=== PATIENT | male | born 1960 | race Caucasian/White ===

== ENCOUNTER 2018-03-31 17:09 | Emergency (ER) | payer BC, OTHER ==
--- NOTE | 2018-03-31 18:02 | EDM.PDOC ---
ED HPI GENERAL MEDICAL PROBLEM - General Chief Complaint: General Stated Complaint: INJURY ON PELVIC AREA Time Seen by Provider: 03/31/18 17:32 Source of Information: Reports: Patient, RN Notes Reviewed - History of Present Illness INITIAL COMMENTS - FREE TEXT/NARRATIVE: 57-year-old male comes in having been kicked or stepped on by a cow anterior mid pelvis just above the base of the penis about 10 days ago. Dates the area did swell up and bruised up immediately. Per day or 2 the bruising and swelling moved lowered down into the scrotum. He is to have bruising of the scrotum. The bruising higher up above the base of the penis is now fading out. However there is an area of swelling there that has not gone away and that is his major concern at this time. Had no difficulty voiding. No major localized pain or discomfort at this time. Groin Pain Score (Numeric/FACES): 2 - Related Data Allergies Allergy/AdvReac Type Severity Reaction Status Date / Time No Known Allergies Allergy Verified 03/31/18 17:27 Home Meds: Home Meds . [No Known Home Meds] 03/31/18 [History] Past Medical History Genitourinary History: Reports: Other (See Below) Other Genitourinary History: prostate cancer Social & Family History - Tobacco Use Smoking Status *Q: Never Smoker - Caffeine Use Caffeine Use: Reports: Coffee - Recreational Drug Use Recreational Drug Use: No ED ROS GENERAL - Review of Systems Review Of Systems: See Below Constitutional: Denies: Fever, Chills HEENT: Reports: No Symptoms Respiratory: Denies: Shortness of Breath Cardiovascular: Denies: Chest Pain GI/Abdominal: Reports: Other (There was lower anterior pelvic discomfort initially but that has resolved). Denies: Abdominal Pain : Reports: Other (No difficulty voiding). Denies: Dysuria, Hematuria Musculoskeletal: Denies: Back Pain, Joint Pain Skin: Reports: Bruising (There is been major bruising lower anterior pelvis just above the base of the penis and then extending down into the scrotum as described) Neurological: Reports: No Symptoms ED EXAM, GENERAL - Physical Exam Exam: See Below General Appearance: Alert, No Apparent Distress Head: Atraumatic Neck: Supple Respiratory/Chest: No Respiratory Distress (Male) Exam: Other (There is an area somewhat firm swelling above the pubic bone at the base of the penis. We nontender the bruising has cleared away from that area no warmth or erythema of that area, penis itself not swollen or tender ). No: Scrotal Swelling, Scrotum Tenderness (L), Scrotum Tenderness (R), Testicular Mass, Testicular Tenderness (L) Extremities: Normal Inspection, Normal Range of Motion Neurological: Alert, Oriented, No Motor/Sensory Deficits Skin Exam: Warm, Dry, Ecchymosis (Quite severe ecchymosis bilateral scrotum and to some extent base of penis although that is resolving) Course - Vital Signs Last Recorded V/S: Last Vital Signs Temp 98.5 F 03/31/18 17:19 Pulse 82 03/31/18 17:19 Resp 18 03/31/18 17:19 BP 144/98 H 03/31/18 17:19 Pulse Ox 98 03/31/18 17:19 - Re-Assessments/Exams Free Text/Narrative Re-Assessment/Exam: 03/31/18 19:00 No evidence for infection at this time. No evidence for intra-scrotal trauma, some bruising of the base of the penis but no worries for fracture or other more severe injury. Departure - Departure Time of Disposition: 18:00 Disposition: Eloped 07 Condition: Fair Clinical Impression: Scrotal hematoma Contusion of pelvis Qualifiers: Encounter type: initial encounter Qualified Code(s): S30.0XXA - Contusion of lower back and pelvis, initial encounter - Discharge Information Instructions: Scrotal Hematoma Referrals: PCP,None [Primary Care Provider] - Forms: ED Department Discharge Additional Instructions: avoid all aspirin and blood thinners which could cause further bleeding. Ice packs as needed for swelling, Have rechecked any sign of infection or if symptoms otherwise worsening in any way.
== END 2018-03-31 18:15 | disposition left against medical advice (07) ==
LOC: JD.ED 17:09
DX: S30.22XA Contusion of scrotum and testes, initial encounter (principal); S30.0XXA Contusion of lower back and pelvis, initial encounter; Z53.21 Procedure and treatment not carried out due to patient leaving prior to being seen by health care provider; W55.22XA Struck by cow, initial encounter
CPT/HCPCS: 99283